=== PATIENT | male | born 1970 | race Caucasian/White ===

== ENCOUNTER 2021-01-28 07:10 | Day surgery (SDC) | payer OTHER ==
[2021-01-28] MEDS ORDERED: Propofol 200 MG/20 ML SDV ONE (07:17)
[2021-01-28] MEDS ORDERED: fentaNYL 100 MCG/2 ML SDV ONE (07:18)
[2021-01-28] MEDS ORDERED: Midazolam 1 MG/ML 2 ML SDV ONE (07:18)
[2021-01-28] MEDS ORDERED: Sodium Chloride 0.9% 1,000 ML IV SCH (07:45)
--- NOTE | 2021-01-28 09:46 | OR ---
DATE OF PROCEDURE: 01/28/2021 SURGEON: Nahum Smith MD PROCEDURE: Colonoscopy. FINDINGS: Normal colonoscopy. COMPLICATIONS: None. [employer] DIV[employer]: None. ANESTHESIA: MAC. PREOPERATIVE DIAGNOSIS: Screening colonoscopy. POSTOPERATIVE DIAGNOSIS: Screening colonoscopy. RISKS: Risks, benefits, alternatives, limitations including, but not limited to, infection, bleeding, perforation, false positives and false negatives were explained to the patient who wished to proceed. PROCEDURE IN DETAIL: The patient was placed in left lateral decubitus position. Digital rectal exam was performed without abnormality. Scope was introduced and advanced atraumatically to the ileocecal valve. Scope was brought back to the ascending, transverse, descending colon, and retroflexed. No evidence of old or new blood. No masses. No polyps. No abnormalities on retroflexion. Greater than 8 minutes was spent removing the scope. The patient tolerated the procedure well. Prep was acceptable, approximately 90% of the luminal surface could be seen. Nahum Smith MD /[id number]
== END 2021-01-28 10:55 | disposition home or self-care (01) ==
LOC: JP.SDS 07:10
PROVIDERS: ATTEND Surgery
DX: Z12.11 Encounter for screening for malignant neoplasm of colon (principal); G47.33 Obstructive sleep apnea (adult) (pediatric); F43.10 Post-traumatic stress disorder, unspecified
CPT/HCPCS: 45378; J2250; J2704; J3010; J7030

== ENCOUNTER 2022-05-31 15:24 | Emergency (ER) | payer OTHER ==
[2022-05-31] MEDS ORDERED: Bacitracin Oint 1 GM U/D Packet TOP ONE (16:43)
[2022-05-31] MEDS ORDERED: Diphtheria,Pertussis(Acell),Tetanus Vaccine 0.5 ML Syringe IM ONE (16:43)
== END 2022-05-31 17:43 | disposition home or self-care (01) ==
LOC: JP.ED 15:24
DX: S81.811A Laceration without foreign body, right lower leg, initial encounter (principal); Z23 Encounter for immunization; W22.09XA Striking against other stationary object, initial encounter
CPT/HCPCS: 12001; 73590-26-RT; 73590-RT; 90471; 90715; 99283; 99283-25